=== PATIENT | female | born 1985 | race American Indian/Alaskan Native ===

== ENCOUNTER 2019-04-23 02:38 | Emergency (ER) | payer SELFPAY ==
[2019-04-23] MEDS ORDERED: FAMOTIDINE 20 MG/2 ML INJ IV ONE (02:51)
[2019-04-23] MEDS ORDERED: SODIUM CHLORIDE 0.9% 1000 ML 1,000 ML IV ONE (02:51)
[2019-04-23] MEDS ORDERED: ONDANSETRON 4 MG/2 ML INJ IV ONE (02:51)
[2019-04-23 03:21] LABS: Basophils % (Auto) 0.5 % (0.0-1.8); Eosinophils % (Auto) 0.6 % (0.0-4.3); Hematocrit 41.9 % (30.3-42.9); Lymphocytes # (Auto) 2.5 K/mm3 (1.2-5.4); Lymphocytes % (Auto) 39.9 % (13.4-35.0); Mean Corpuscular HGB Conc 33 % (30-34); Mean Corpuscular Volume 86 fl (79-97); Monocytes # (Auto) 0.4 K/mm3 (0.0-0.8); Monocytes % (Auto) 6.3 % (0.0-7.3); Platelet Count 251 K/mm3 (140-440); Red Blood Count 4.87 M/mm3 (3.65-5.03); Red Cell Distribution Width 14.5 % (13.2-15.2)
[2019-04-23 03:41] LABS: Alanine Aminotransferase 21 units/L (7-56); Albumin 5.1 g/dL (3.9-5); BUN/Creatinine Ratio 22; Blood Urea Nitrogen 13 mg/dL (7-17); Calcium 9.4 mg/dL (8.4-10.2); Hemolysis Index 28
--- NOTE | 2019-04-23 06:20 | Emergency Department Report ---
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 Patient was dropped off by [facility] [employer] however, they did not provide report or a trip sheet. She and is initially belligerent with staff. She is having retching and vomiting. She sta navarro she drank a lot today but denies daily alcohol use. She also states she passed out for unknown amount of time. [place] of some stomach discomfort and denies headache. 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 - Related Data Previous Rx's Medication Instructions Recorded Last Taken Type Famotidine [Pepcid] 20 mg PO BID #20 tablet 04/23/19 Unknown Rx Ondansetron [Zofran Odt] 4 mg PO Q8HR PRN #20 tab.rapdis 04/23/19 Unknown Rx Allergies Allergy/AdvReac Type Severity Reaction Status Date / Time No Known Allergies Allergy Verified 04/23/19 02:41 ED Review of Systems Comment: All other systems reviewed and negative ED Past Medical Hx - Past Medical History Previous Medical History?: Yes Additional medical history: gullian barre, - Surgical History Past Surgical History?: No - Social History Smoking Status: Never Smoker - Medications Home Medications: Home Medications Medication Instructions Recorded Confirmed Last Taken Type Famotidine [Pepcid] 20 mg PO BID #20 tablet 04/23/19 Unknown Rx Ondansetron [Zofran Odt] 4 mg PO Q8HR PRN #20 tab.rapdis 04/23/19 Unknown Rx ED Physical Exam - General Limitations: No Limitations - Other Other exam information: General: No acute distress Head: Atraumatic Eyes: normal appearance ENT: Moist mucous membranes Neck: Normal appearance, no midline tenderness Chest: Clear to auscultation bilaterally CV: Regular rate and rhythm Abdomen: Soft, normal bowel sounds, nontender, nondistended, no rebound or guarding Back: Normal inspection Extremity: Normal inspection infection, full range of motion Neuro: Patient is intoxicated, alert, speech slurred due to intoxication. No gross deficits Psych: Belligerent Skin: No rash ED Medical Decision Making - Lab Data Result diagrams: 04/23/19 03:02 04/23/19 03:02 - Medical Decision Making 6:22a Patient requires some coaxing to cooperate with blood draw, medication, and IV hydration. CT head ordered but repeatedly refused by patient. Labs significant for acute alcohol intoxication. Patient treated with Zofran, Pepcid, and normal saline. Patient signed out to oncoming provider Dr. Ruby to reassess patient for clinical sobriety. CT may not be needed if patient does not have a headache and is at normal mental status at baseline and still refuses however this is difficult to determine at this time. - Differential Diagnosis syncope, dehydration, alcoholic gastritis, alcohol intoxication, Critical Care Time: No ED Disposition Clinical Impression: Acute alcohol intoxication, Alcoholic gastritis Disposition: ELOPED Is pt being admited?: No Does the pt Need Aspirin: No Condition: Stable Instructions: Gastritis (ED), Alcohol Intoxication (ED) Additional Instructions: Take the medication as prescribed. Follow-up with your doctor or doctor/clinic provided. Return if symptoms worsen as indicated by your discharge inst ructions. Prescriptions: Famotidine [Pepcid] 20 mg PO BID #20 tablet Ondansetron [Zofran Odt] 4 mg PO Q8HR PRN #20 tab.rapdis PRN Reason: Nausea And Vomiting Referrals: PRIMARY CARE, [Primary Care Provider] - 3-5 Days [facility] [Provider Group] - 3-5 Days <ACOSTA RUBY - Last Filed: 04/23/19 14:22> ED Review of Systems ROS: Stated complaint: POSSIBLE ALCOHOL POISONING Other details as noted in HPI ED Course Vital Signs 04/23/19 04/23/19 04/23/19 03:00 03:05 03:15 Pulse Rate 70 114 H Respiratory 18 18 17 Rate Blood Pressure 115/74 105/63 [Right] O2 Sat by Pulse 100 100 Oximetry 04/23/19 04/23/19 04/23/19 05:03 06:30 09:00 Pulse Rate 70 70 86 Respiratory 18 18 18 Rate Blood Pressure 116/65 103/62 105/56 [Right] O2 Sat by Pulse 100 100 94 Oximetry 04/23/19 10:00 Pulse Rate 97 H Respiratory 16 Rate Blood Pressure 111/59 [Right] O2 Sat by Pulse 96 Oximetry ED Medical Decision Making - Lab Data Result diagrams: 04/23/19 03:02 04/23/19 03:02 - Medical Decision Making Patient eloped at 11:30a.jaime Ruby M.D. The patient refused CT of head after multiple discussions with her about my concern for further evaluation Critical care attestation.: If time is entered above; I have spent that time in minutes in the direct care of this critically ill patient, excluding procedure time. ED Disposition Is pt being admited?: No Does the pt Need Aspirin: No
[2019-04-23 10:27] LABS: Amphetamine Screen,Urine PRESUMPTIVE NEGATIVE; Benzodiazepines Screen,Urine PRESUMPTIVE NEGATIVE; Cannabinoid Screen,Urine PRESUMPTIVE NEGATIVE; Cocaine Screen,Urine PRESUMPTIVE NEGATIVE; Methadone Screen,Urine PRESUMPTIVE NEGATIVE; Opiate Screen,Urine PRESUMPTIVE NEGATIVE
[2019-04-23 13:39] VITALS: BP 111/59
== END 2019-04-23 12:00 | disposition left against medical advice (07) ==
LOC: ED 02:38
DX: F10.129 Alcohol abuse with intoxication, unspecified (principal); K29.00 Acute gastritis without bleeding; Z79.899 Other long term (current) drug therapy
CPT/HCPCS: 36415; 80053; 80307; 83690; 83735; 84703; 85025; 96361; 96374; 96375; 99283; J2405; J7030; 80320; G0480